=== PATIENT | male | born 1970 | race Caucasian/White ===

== ENCOUNTER 2022-12-23 04:24 | Day surgery (SDC) | payer BC ==
[2022-12-21 16:54] VITALS: BMI 41.0
[2022-12-23] MEDS ORDERED: ROPIVACAINE HCL 0.5% 30ML VIAL ONE (07:45)
[2022-12-23] MEDS ORDERED: DEXAMETHASONE SOD PHOSPHATE 10 MG/1 ML VIAL ONE (07:45)
[2022-12-23] MEDS ORDERED: MIDAZOLAM HCL 2 MG/2 ML SINGLE DOSE VIAL ONE (07:48)
[2022-12-23] MEDS ORDERED: PROPOFOL 20 ML ONE ×2 (08:22→08:52)
[2022-12-23] MEDS ORDERED: ceFAZolin SODIUM 1 GM VIAL ONE (08:32)
[2022-12-23] MEDS ORDERED: ceFAZolin SODIUM 1 GM VIAL IVPB ONE (08:36)
[2022-12-23] MEDS ORDERED: ONDANSETRON 4 MG/2 ML VIAL ONE (09:29)
[2022-12-23] MEDS ORDERED: DEXAMETHASONE SOD PHOSPHATE 4 MG/1 ML VIAL ONE (09:29)
[2022-12-23] MEDS ORDERED: oxyCODONE HCL 5 MG TABLET PO PRN (09:47)
[2022-12-23] MEDS ORDERED: ONDANSETRON 4 MG/2 ML VIAL IVPUSH PRN (09:47)
[2022-12-23] MEDS ORDERED: LACTATED RINGERS SOLUTION 1,000 ML IV SCH (10:00)
[2022-12-23 11:14] VITALS: RESP 20
[2022-12-23 13:45] VITALS: TEMP 96.9
[2022-12-23 13:50] VITALS: BP 142/72; PULSE 72
== END 2022-12-23 12:40 | disposition home or self-care (01) ==
LOC: JASU-SURG 04:24
PROVIDERS: ATTEND Orthopaedic Surgery
PROC: 0LS40ZZ Reposition Left Upper Arm Tendon, Open Approach (ICD-10-PCS; principal; 2022-12-23 08:00)
DX: S46.112A Strain of muscle, fascia and tendon of long head of biceps, left arm, initial encounter (principal); X58.XXXA Exposure to other specified factors, initial encounter; Y93.9 Activity, unspecified; Y92.9 Unspecified place or not applicable; Y99.9 Unspecified external cause status
CPT/HCPCS: 82962; 94760; C1713; J1100